=== PATIENT | female | born 1955 | race Hispanic/Latino ===

== ENCOUNTER 2017-11-22 11:00 | Outpatient (CLI) | payer MEDICARE | END 2017-11-22 11:01 | disposition home or self-care (01) | LOC: SLR 11:00 | PROVIDERS: ATTEND Otolaryngology | DX: G47.33 Obstructive sleep apnea (adult) (pediatric) (principal); R40.0 Somnolence; R06.83 Snoring | CPT/HCPCS: 95810 ==

== ENCOUNTER 2018-06-12 07:30 | Inpatient (IN) | payer MEDICARE ==
--- NOTE | 2018-06-11 11:15 | Anesthesia Consultation ---
Anesthesia Consult and Med Hx - Airway Anesthetic Teeth Evaluation: Good ROM Head & Neck: Adequate Mental/Hyoid Distance: Adequate Mallampati Class: Class II Intubation Access Assessment: Good - Pulmonary Exam CTA: Yes - Cardiac Exam Cardiac Exam: RRR - Pre-Operative Health Status ASA Pre-Surgery Classification: ASA2 Proposed Anesthetic Plan: General - Cardiovascular System Hx Hypertension: Yes (2010) - Central Nervous System Hx Psychiatric Problems: Yes - Other Systems Hx Alcohol Use: No Hx Substance Use: No Hx Cancer: Yes (MELANOMA ) Hx Obesity: Yes
[~2018-06-12 07:30] MED LIST: LACTATED RINGERS 1,000 ML IV SCH; NEURONTIN PO NR; TYLENOL PO NR
[2018-06-12] MEDS ORDERED: LACTATED RINGERS 1,000 ML ONE (11:01)
[2018-06-12] MEDS ORDERED: REGLAN IV PRN (11:48)
[2018-06-12] MEDS ORDERED: NORCO PO PRN (11:48)
[2018-06-12] MEDS ORDERED: APRESOLINE IV PRN (11:48)
[2018-06-12] MEDS ORDERED: LOVENOX SUB-Q NR (12:00)
[2018-06-12] MEDS ORDERED: ANCEF/STERILE WATER 2 GM/20 ML 2 GM/20 ML SYRINGE IV NR (12:00)
[2018-06-12] MEDS ORDERED: LACTATED RINGERS 1,000 ML IV SCH (12:00)
[2018-06-12] MEDS ORDERED: FLAGYL 500 MG/100 ML 500 MG/100 ML BAG IV NR (12:00)
--- NOTE | 2018-06-12 13:38 | Anesthesia Day of Surgery ---
Anesthesia Day of Surgery - Day of Surgery Patient Examined: Yes Patient H&P Reviewed: Yes Patient is NPO: Yes Beta Blockers: No Cardiac Clearance: No Pulmonary Clearance: No
[2018-06-12] MEDS ORDERED: SUBLIMAZE IV PRN (13:39)
[2018-06-12] MEDS ORDERED: ZOFRAN IV PRN (13:39)
[2018-06-12] MEDS ORDERED: NARCAN 0.4 MG/1 ML IV PRN (13:39)
[2018-06-12] MEDS ORDERED: DEMEROL IV PRN (13:39)
[2018-06-12] MEDS ORDERED: MARCAINE-EPI 0.5%-1:200,000 INFILTRATI ONE ×2 (14:01→15:00)
[2018-06-12] MEDS ORDERED: XYLOCAINE 1% 20 mL ONE (14:01)
[2018-06-12] MEDS ORDERED: DILAUDID ONE (14:02)
[2018-06-12] MEDS ORDERED: DIPRIVAN 10 MG/ML IV ONE (14:02)
[2018-06-12] MEDS ORDERED: XYLOCAINE MPF 2% ONE (14:05)
[2018-06-12] MEDS ORDERED: ZEMURON IV ONE (14:06)
[2018-06-12] MEDS ORDERED: XYLOCAINE 1% 20 mL INFILTRATI ONE (15:00)
[2018-06-12] MEDS ORDERED: NACL 0.9% IR ONE ×2 (15:01→15:45)
[2018-06-12] MEDS ORDERED: ROBINUL ONE (15:35)
[2018-06-12] MEDS ORDERED: DECADRON ONE (15:35)
[2018-06-12] MEDS ORDERED: BLOXIVERZ ONE (15:35)
[2018-06-12] MEDS ORDERED: ZOFRAN ONE (15:35)
[2018-06-12] MEDS ORDERED: TORADOL ONE (15:50)
[2018-06-12] MEDS: DILAUDID IV PRN ×3 (16:08→18:15)
[2018-06-12] MEDS: MYLICON PO PRN ×2 (18:15→23:20)
[2018-06-12] MEDS ORDERED: LaMICtal PO SCH (22:00)
[2018-06-12] MEDS: ZOFRAN IV PRN (22:30)
[2018-06-12] MEDS: WELLBUTRIN PO SCH (22:32)
[2018-06-13] MEDS: DILAUDID IV PRN ×2 (01:35→05:51)
[2018-06-13] MEDS: ZOFRAN IV PRN ×2 (01:35→08:03)
--- NOTE | 2018-06-13 04:35 | Discharge Summary ---
Providers - Providers Date of Admission: 06/12/18 10:35 Date of discharge: 06/13/18 Attending physician: LUL CARR Primary care physician: JERRICA CUMMINGS Hospitalization Reason for admission: postop care Condition: Good Procedures: 06/12/18: Laparoscopic sleeve gastrectomy Hospital course: 62F admitted after her operation for routine postop care. She had no major issues. She c/o feeling a bug bite once she got up to her room, which was her major concern. Tolerated CLD, ambulated, pain tolerable. She was dc home in stable condition. Disposition: DC-01 TO HOME OR SELFCARE Core Measure Documentation - Palliative Care Palliative Care/ Comfort Measures: Not Applicable - Core Measures Any of the following diagnoses?: none - VTE Discharge Requirements Deep Vein Thrombosis/Pulmonary Embolism Present on Admission: No - Acute AR Discharge Requirements Aspirin at discharge: No Reason for no aspirin on DC: Surgical contraindication - Heart Failure Discharge Requirements GT/ARB for LVSD if EF <40%: Not Applicable - Stroke Discharge Requirements Statin for LDL = or >70 mg/dl on DC: Not Applicable Exam - Physical Exam Narrative exam: GEN: AAO, appears tired HEART: RRR LUNGS: CTAB ABD: Soft, ND, NT, bandages cdi EXT: NO LE edema - Constitutional Vitals: Temp Pulse Resp BP Pulse Ox 97.1 F L 63 10 L 115/67 96 06/12/18 16:00 06/12/18 17:00 06/12/18 17:00 06/12/18 17:00 06/12/18 17:00 Plan Diet: clear liquids Wound: keep clean and dry Additional Instructions: f/u Dr Carr as scheduled Follow up with: JERRICA CUMMINGS MD [Primary Care Provider] - 7 Days
[2018-06-13 05:37] LABS: Basophils % (Auto) 0.2 % (0.0-1.8); Hematocrit 32.2 % (30.3-42.9); Hemoglobin 10.3 gm/dl (10.1-14.3); Lymphocytes # (Auto) 2.3 K/mm3 (1.2-5.4); Lymphocytes % (Auto) 19.3 % (13.4-35.0); Mean Corpuscular HGB Conc 32 % (30-34); Mean Corpuscular Volume 87 fl (79-97); Monocytes # (Auto) 0.6 K/mm3 (0.0-0.8); Monocytes % (Auto) 4.8 % (0.0-7.3); Platelet Count 287 K/mm3 (140-440); Red Blood Count 3.68 M/mm3 (3.65-5.03); Red Cell Distribution Width 14.5 % (13.2-15.2)
[2018-06-13 06:00] LABS: Alanine Aminotransferase 15 units/L (7-56); Albumin 3.3 g/dL (3.9-5); BUN/Creatinine Ratio 23; Blood Urea Nitrogen 16 mg/dL (7-17); Calcium 8.5 mg/dL (8.4-10.2); Hemolysis Index 7
--- NOTE | 2018-06-13 07:37 | Post Anesthesia Evaluation ---
- Post Anesthesia Evaluation Patient Participated: Yes Airway Patent: Yes Stable Respiratory Function: Yes Nausea/Vomiting: No Temp > 96.8F: Yes Pain Manageable: Yes Adequeate Hydration: Yes Anesthesia Complications: No
[2018-06-13] MEDS: MYLICON PO PRN (08:03)
[2018-06-13] MEDS ORDERED: TENORMIN PO SCH (10:00)
[2018-06-13] MEDS ORDERED: LOVENOX SUB-Q SCH (10:00)
[2018-06-13] MEDS ORDERED: PROTONIX PO SCH (10:00)
[2018-06-13] MEDS: WELLBUTRIN PO SCH (10:42)
[2018-06-13 12:06] VITALS: BP 109/72
== END 2018-06-13 12:10 | disposition home or self-care (01) | DRG 620 ==
LOC: 3A 10:35 → 3B-SURG 16:26
PROVIDERS: ADMIT Specialist; ATTEND Specialist
PROC: 0DB64Z3 Excision of Stomach, Percutaneous Endoscopic Approach, Vertical (ICD-10-PCS; principal; 2018-06-12)
PROC: 0BQT4ZZ Repair Diaphragm, Percutaneous Endoscopic Approach (ICD-10-PCS; 2018-06-12)
DX: E66.01 Morbid (severe) obesity due to excess calories (principal); F30.10 Manic episode without psychotic symptoms, unspecified; K21.9 Gastro-esophageal reflux disease without esophagitis; I10 Essential (primary) hypertension; K44.9 Diaphragmatic hernia without obstruction or gangrene; E05.90 Thyrotoxicosis, unspecified without thyrotoxic crisis or storm; Z85.820 Personal history of malignant melanoma of skin; Z68.41 Body mass index [BMI] 40.0-44.9, adult
CPT/HCPCS: 36415; 80053; 85025; 88307; G0378; A4217; J0690; J1100; J1170; J1650; J1885; J2405; J2704; J2710; J7120